=== PATIENT | female | born 1945 | race African-American/Black ===

== ENCOUNTER 2018-10-30 01:19 | Emergency (ER) | payer MEDICARE, OTHER ==
[~2018-10-30] VITALS: Ht 172.7 cm; Wt 90.7 kg
[~2018-10-30 01:19] MED LIST: ALPRAZOLAM0.5 MG PO; AMLODIPINE BESY10 MG ORAL; AZITHROMYCIN250 MG ORAL; HYDRALAZINE HCL50 MG ORAL; HYDROCHLOROTH12.5 M2 ORAL; IRBESARTAN150 MG ORAL; ONDANSETRON ODT4 MG ORAL; OSTERA TABLET1 EACH PO; ROBITUSSIN COU1 EACH PO; [UNRECOGNIZED DRUG - OTHER] PO
[2018-10-30 01:30] VITALS: BP 157/95
--- NOTE | 2018-10-30 01:35 | NUR ---
ED Nurse Note: Pt arrived ambulatory with complaint of feeling her body shake "like an engine". Pt states she feel her gait is unsteady, and is feeling very odd. Pt has a hx of hyperthyroidism.
[2018-10-30 02:23] LABS: BASOPHILS % (AUTO) 1.6 % (0.0-2.0); HEMATOCRIT 39.1 % (37.0-47.0); HEMOGLOBIN 13.1 G/DL (12.0-16.0); LYMPHOCYTES % (AUTO) 44.5 % (20.0-45.0); MEAN CORPUSCULAR VOLUME 89 FL (80-99); MONOCYTES % (AUTO) 6.5 % (1.0-10.0); NEUTROPHILS % (AUTO) 45.4 % (45.0-75.0); PLATELET COUNT 195 K/UL (150-450); WHITE BLOOD COUNT 7.1 K/UL (4.8-10.8)
[2018-10-30 02:23] LABS: APPEARANCE,URINE CLEAR; BILIRUBIN, URINE NEGATIVE (NEGATIVE); COLOR,URINE PALE YELLOW; GLUCOSE, URINE (UA) NEGATIVE (NEGATIVE); KETONES,URINE NEGATIVE (NEGATIVE); LEUKOCYTE ESTERASE ,URINE NEGATIVE (NEGATIVE); NITRITE,URINE NEGATIVE (NEGATIVE); PH,URINE 7 (4.5-8.0); PROTEIN,URINE NEGATIVE (NEGATIVE); UROBILINOGEN,URINE NORMAL MG/DL (0.0-1.0)
[2018-10-30 02:31] LABS: ANION GAP 6 mmol/L (5-15); BLOOD UREA NITROGEN 16 mg/dL (7-18); CALCIUM 8.5 MG/DL (8.5-10.1); CARBON DIOXIDE 27 MMOL/L (21-32); CHLORIDE 106 MMOL/L (98-107); POTASSIUM 3.5 MMOL/L (3.5-5.1); SODIUM 139 MMOL/L (136-145)
[2018-10-30 02:43] LABS: ALANINE AMINOTRANSFERASE 19 U/L (12-78); ALBUMIN 3.8 G/DL (3.4-5.0); ALKALINE PHOSPHATASE 70 U/L (46-116); ASPARTATE AMINO TRANSFERASE 18 U/L (15-37); BILIRUBIN,TOTAL 0.3 MG/DL (0.2-1.0)
[2018-10-30] MEDS ORDERED: Dexamethasone 4mg/ml vial IVP ONE (03:15)
--- NOTE | 2018-10-30 05:42 | Emergency Room Report ---
History of Present Illness General Chief Complaint: General Complaint Source: Patient Present Illness HPI Patient is a 73-year-old female presented after increased generalized back pain. She reports having previously been seen by She states that she been having increased dry mouth as well as generalized body pain. She states this is worse in her back. She reports having some previous history of hypertension. She denies any prior cardiac conditions. She reportedly takes Norvasc for hypertension. She states that she is in the past had some swelling to her leg which has improved. Allergies: Coded Allergies: ANTIHISTAMINES - ALKYLAMINE (Verified Allergy, Severe, Shortness of Breath , 08/16/13) SOB, Rash ANTIHISTAMINES - ETHANOLAMINE (Verified Allergy, Severe, Shortness of Breath, 08/16/13) SOB, Rash ANTIHISTAMINES - ETHYLENEDIAMINE (Verified Allergy, Severe, Shortness of Breath, 08/16/13) SOB, Rash ANTIHISTAMINES - PIPERAZINE (Verified Allergy, Severe, Shortness of Breath , 08/16/13) SOB, Rash ANTIHISTAMINES - PIPERIDINE (Verified Allergy, Severe, Shortness of Breath , 08/16/13) SOB, Rash CODEINE (Verified Allergy, Intermediate, Rash, 08/16/13) Rash, Itching PENICILLINS (Verified Allergy, Intermediate, Rash, 08/16/13) Rash and Itching Patient History Past Medical History: see triage record Last Menstrual Period: n/a Reviewed Nursing Documentation: PMH: Agreed; PSxH: Agreed Nursing Documentation-PMH Past Medical History: No History, Except For Hx Cardiac Problems: Yes - Parathyroidectomy in 2001 Hx Hypertension: Yes Hx Pacemaker: No Hx Asthma: No Hx COPD: No Hx Diabetes: No Hx Cancer: No Hx Gastrointestinal Problems: No - s/p Hysterectomy in 1991 Hx Dialysis: No Hx Neurological Problems: No Hx Cerebrovascular Accident: No Hx Seizures: No Review of Systems All Other Systems: negative except mentioned in HPI Physical Exam Vital Signs Date Time Temp Pulse Resp B/P (MAP) Pulse Ox O2 Delivery O2 Flow Rate FiO2 10/30/18 01:23 98.2 83 18 157/95 96 Room Air Sp02 EP Interpretation: reviewed, normal General Appearance: normal inspection, well appearing, no apparent distress, alert, GCS 15, Chronically Ill Head: atraumatic ENT: normal ENT inspection, hearing grossly normal, normal voice Neck: normal inspection, full range of motion, supple, no bony tend Respiratory: normal inspection, lungs clear, normal breath sounds, no respiratory distress, no retraction, no wheezing Cardiovascular #1: regular rate, rhythm, no edema Gastrointestinal: normal inspection, normal bowel sounds, non tender, soft, no guarding, no hernia Genitourinary: no CVA tenderness Musculoskeletal: normal inspection, back normal, normal range of motion Neurologic: normal inspection, alert, oriented x3, responsive, boiling tub operator III-XII nml as tested, speech normal Psychiatric: normal inspection, judgement/insight normal, mood/affect normal Skin: normal inspection, normal color, no rash Medical Decision Making Diagnostic Impression: Primary Impression: Back pain Additional Impression: Thyroid disease ER Course Patient presented for back pain. Differential diagnosis include was not limited to Hypothyroidism bronchitis pneumonia among others. Because of complexity of patient's case laboratory testing and imaging studies were ordered. Laboratory testing showed no evidence of anemia. Patient's TSH was noted to be normal. Urinalysis showed evidence of fairly dilute urine and patient does not appear to be dehydrated. EKG interpreted by me showed normal sinus rhythm with a rate of [address] or T wave changes. Patient was noted to be in no acute distress. Rhythm strip showed normal sinus rhythm with occasional PVCs. Patient appears to be stable for outpatient evaluation by her primary care physician. Patient was discharged home. She was advised to follow -up with her primary care physician for further workup and evaluation of her back pain. She was given steroids in the emergency department due to discomfort. Patient was advised to return if she began having any increased concerns. Labs Test 10/30/18 01:35 10/30/18 02:00 Urine Color Pale yellow Urine Appearance Clear Urine pH 7 (4.5-8.0) Urine Specific [place] 1.005 (1.005-1.035) Urine Protein Negative (NEGATIVE) Urine Glucose (UA) Negative (NEGATIVE) Urine Ketones Negative (NEGATIVE) Urine Blood Negative (NEGATIVE) Urine Nitrite Negative (NEGATIVE) Urine Bilirubin Negative (NEGATIVE) Urine Urobilinogen Normal MG/DL (0.0-1.0) Urine Leukocyte Esterase Negative (NEGATIVE) Urine RBC 0 /HPF (0 - 2) Urine WBC 0 /HPF (0 - 2) Urine Squamous Epithelial Cells None /LPF (NONE/OCC) Urine Bacteria None /HPF (NONE) White Blood Count 7.1 K/UL (4.8-10.8) Red Blood Count 4.40 M/UL (4.20-5.40) Hemoglobin 13.1 G/DL (12.0-16.0) Hematocrit 39.1 % (37.0-47.0) Mean Corpuscular Volume 89 FL (80-99) Mean Corpuscular Hemoglobin 29.9 PG (27.0-31.0) Mean Corpuscular Hemoglobin Concent 33.6 G/DL (32.0-36.0) Red Cell Distribution Width 12.0 % (11.6-14.8) Platelet Count 195 K/UL (150-450) Mean Platelet Volume 8.7 FL (6.5-10.1) Neutrophils (%) (Auto) 45.4 % (45.0-75.0) Lymphocytes (%) (Auto) 44.5 % (20.0-45.0) Monocytes (%) (Auto) 6.5 % (1.0-10.0) Eosinophils (%) (Auto) 2.0 % (0.0-3.0) Basophils (%) (Auto) 1.6 % (0.0-2.0) Sodium Level 139 MMOL/L (136-145) Potassium Level 3.5 MMOL/L (3.5-5.1) Chloride Level 106 MMOL/L (98-107) Carbon Dioxide Level 27 MMOL/L (21-32) Anion Gap 6 mmol/L (5-15) Blood Urea Nitrogen 16 mg/dL (7-18) Creatinine 1.0 MG/DL (0.55-1.30) Estimat Glomerular Filtration Rate mL/min (>60) Glucose Level 95 MG/DL (74-106) Calcium Level 8.5 MG/DL (8.5-10.1) Total Bilirubin 0.3 MG/DL (0.2-1.0) Aspartate Amino Transf (AST/SGOT) 18 U/L (15-37) Alanine Aminotransferase (ALT/SGPT) 19 U/L (12-78) Alkaline Phosphatase 70 U/L (46-116) Troponin I 0.002 ng/mL (0.000-0.056) C-Reactive Protein, Quantitative 0.5 mg/dL (0.00-0.90) Pro-B-Type Natriuretic Peptide 23 pg/mL (0-125) Total Protein 7.5 G/DL (6.4-8.2) Albumin 3.8 G/DL (3.4-5.0) Globulin 3.7 g/dL Albumin/Globulin Ratio 1.0 (1.0-2.7) Lipase 125 U/L (73-393) Thyroid Stimulating Hormone (TSH) 2.526 uiU/mL (0.358-3.740) EKG Diagnostic Results Rate: normal Rhythm: NSR ST Segments: no acute changes Last Vital Signs Date Time Temp Pulse Resp B/P (MAP) Pulse Ox O2 Delivery O2 Flow Rate FiO2 10/30/18 01:23 98.2 83 18 157/95 96 Room Air Status: improved Disposition: HOME, SELF-CARE Condition: Stable Patient Instructions: Back Pain, Adult Cory Franklin MD Oct 30, 2018 05:42
--- NOTE | 2018-10-30 06:10 | NUR ---
ED Nurse Note: Pt cleared by MD. Discharge paperwork provided. Pt verbalized understanding of all instructions. IV and ID band removed. All belongings taken with patient. Pt has approriate
[2018-10-30 06:18] VITALS: BP 133/67
--- NOTE | 2018-10-30 13:47 | Diagnostic Imaging Report ---
Indication: Shortness of Technique: One view of the chest Comparison: 08/17/2012 Findings: The heart size is normal. The lungs and pleural spaces are clear. The aorta is tortuous. No significant change Impression: No acute process This agrees with the preliminary interpretation provided by the emergency room physician
== END 2018-10-30 06:30 | disposition home or self-care (01) ==
LOC: EMR 01:57
DX: M54.9 Dorsalgia, unspecified (principal); E07.9 Disorder of thyroid, unspecified; I10 Essential (primary) hypertension; Z90.710 Acquired absence of both cervix and uterus
CPT/HCPCS: 36415; 71045; 80053; 81001; 82962; 83690; 83880; 84443; 84484; 85025; 86140; 93005; 96374; 99284; J1100

== ENCOUNTER 2018-11-23 10:07 | Emergency (ER) | payer MEDICARE, OTHER ==
[~2018-11-23] VITALS: Ht 172.7 cm; Wt 99.8 kg
[2018-11-23] MEDS ORDERED: LOSARTAN POTASS50 MG ORAL (10:21)
[2018-11-23 10:34] VITALS: BP 164/89
[2018-11-23 10:58] VITALS: BP 149/85
--- NOTE | 2018-11-24 07:07 | Emergency Room Report ---
History of Present Illness General Chief Complaint: Hypertension Source: Patient, Medical Record Present Illness HPI 73-year-old female presents ED for evaluation. Complaining of high blood pressure. BP in triage 146/85. Denies chest pain or shortness of breath. Denies dizziness or blurry vision. Denies headache. States that she is currently on BP meds and is compliant with them. Was recently taken off atenolol because it had side effects. Patient states her blood pressure was higher this morning. States she takes the medication in the morning. States she was seen at [facility] recently for similar presentation and subsequent only discharged. No other aggravating relieving factors. Denies any other associated symptoms Allergies: Coded Allergies: ANTIHISTAMINES - ALKYLAMINE (Verified Allergy, Severe, Shortness of Breath , 08/16/13) SOB, Rash ANTIHISTAMINES - ETHANOLAMINE (Verified Allergy, Severe, Shortness of Breath, 08/16/13) SOB, Rash ANTIHISTAMINES - ETHYLENEDIAMINE (Verified Allergy, Severe, Shortness of Breath, 08/16/13) SOB, Rash ANTIHISTAMINES - PIPERAZINE (Verified Allergy, Severe, Shortness of Breath , 08/16/13) SOB, Rash ANTIHISTAMINES - PIPERIDINE (Verified Allergy, Severe, Shortness of Breath , 08/16/13) SOB, Rash CODEINE (Verified Allergy, Intermediate, Rash, 08/16/13) Rash, Itching PENICILLINS (Verified Allergy, Intermediate, Rash, 08/16/13) Rash and Itching Patient History Past Medical History: HTN Past Surgical History: none Pertinent Family History: none Social History: Denies: smoking, alcohol use, drug use Now: No Immunizations: UTD Reviewed Nursing Documentation: PMH: Agreed; PSxH: Agreed Nursing Documentation-PMH Past Medical History: No History, Except For Hx Cardiac Problems: Yes - Parathyroidectomy in 2001 Hx Hypertension: Yes Hx Pacemaker: No Hx Asthma: No Hx COPD: No Hx Diabetes: No Hx Cancer: No Hx Gastrointestinal Problems: No - s/p Hysterectomy in 1991 Hx Dialysis: No Hx Neurological Problems: No Hx Cerebrovascular Accident: No Hx Seizures: No Review of Systems All Other Systems: negative except mentioned in HPI Physical Exam Vital Signs Date Time Temp Pulse Resp B/P (MAP) Pulse Ox O2 Delivery O2 Flow Rate FiO2 11/23/18 10:13 98.1 80 18 146/85 95 Room Air Sp02 EP Interpretation: reviewed, normal General Appearance: no apparent distress, alert, GCS 15, non-toxic Head: normocephalic, atraumatic Eyes: bilateral eye normal inspection, bilateral eye PERRL ENT: hearing grossly normal, normal pharynx, no angioedema, normal voice Neck: full range of motion, supple/symm/no masses Respiratory: chest non-tender, lungs clear, normal breath sounds, speaking full sentences Cardiovascular #1: regular rate, rhythm, no edema Cardiovascular #2: 2+ carotid (R), 2+ carotid (L), 2+ radial (R), 2+ radial (L) , 2+ dorsalis pedis (R), 2+ dorsalis pedis (L) Gastrointestinal: normal bowel sounds, non tender, soft, non-distended, no guarding, no rebound Rectal: deferred Genitourinary: normal inspection, no CVA tenderness Musculoskeletal: back normal, gait/station normal, normal range of motion, non- tender Neurologic: alert, oriented x3, responsive, motor strength/tone normal, sensory intact, speech normal Psychiatric: judgement/insight normal, memory normal, mood/affect normal, no suicidal/homicidal ideation Reflexes: 3+ bicep (R), 3+ bicep (L), 3+ tricep (R), 3+ tricep (L), 3+ knee (R) , 3+ knee (L) Skin: normal color, no rash, warm/dry, well hydrated Lymphatic: no adenopathy Medical Decision Making Diagnostic Impression: Primary Impression: Hypertension Qualified Codes: I10 - Essential (primary) hypertension ER Course Hospital Course 73-year-old female presents ED complaining of elevated BP Differential diagnoses include: hypertensive urgency, hypertensive emergency, arrythmia, ID/ACS Clinical course Patient placed on stretcher. After initial history, physical exam reveals a elderly female in no acute distress. Physical exam unremarkable. Cranial nerves II through XII intact. No evidence of end organ damage Subsequent BPs in ED are similar to triage. Patient asymptomatic. Discussed findings with patient. This is asymptomatic hypertension. No emergent indication for treatment. Discussed findings with patient. Patient is requesting a second medication for blood pressure to take with her losartan. I explained that the ER is not an appropriate avenue to discuss such medications. She needs to follow-up with either her PMD or a convex grinder operator in the outpatient setting Patient states she was told the same thing at [facility]. States she will follow-up with her PMD. Safe for discharge close outpatient follow-up I. I feel this is a highly complex case requiring extensive working including EKG/Rhythm strip, Xray/CT/US, Blood/urine lab work, repeat exams while in ED, and administration of strong opiates/narcotics for pain control, admission to hospital or close patient follow up. Diagnosis - hypertension Stable and discharged to home. Instructed to followup with PMD. Return to ED if symptoms recur or worsen Last Vital Signs Date Time Temp Pulse Resp B/P (MAP) Pulse Ox O2 Delivery O2 Flow Rate FiO2 11/23/18 10:58 98.4 86 17 149/85 98 Room Air Status: improved Disposition: HOME, SELF-CARE Condition: Stable Referrals: NON PHYSICIAN (PCP) Patient Instructions: Hypertension, [id number] Stephen Castanon MD Nov 24, 2018 07:07
== END 2018-11-23 11:10 | disposition home or self-care (01) ==
LOC: EMR 10:45
DX: I10 Essential (primary) hypertension (principal); Z79.899 Other long term (current) drug therapy; Z88.6 Allergy status to analgesic agent; Z88.0 Allergy status to penicillin; Z88.8 Allergy status to other drugs, medicaments and biological substances; Z90.710 Acquired absence of both cervix and uterus
CPT/HCPCS: 99282

== ENCOUNTER 2019-06-04 16:22 | Emergency (ER) | payer MEDICARE, OTHER ==
[~2019-06-04] VITALS: Ht 172.7 cm; Wt 88.0 kg
[~2019-06-04 16:22] MED LIST changes: +LOSARTAN POTASS50 MG ORAL
--- NOTE | 2019-06-04 16:30 | NUR ---
ED Nurse Note: PT WALKED IN TO ER TODAY FROM HOME. AOX4. PT C/O DIZZINESS AND PALPITATIONS X 2-3 HOURS AGO. PT DENIES NAUSEA OR VOMITING. PT DENIES ANY PAIN. GAIT STEADY BUT WEAK IN ER. AT BEDSIDE, PT STATES SYMPTOMS ARE STILL ONGOING AT THIS TIME. BP 160/93 - DR TOLLIVER AWARE AND AT BEDSIDE FOR EVALUATION.
[2019-06-04 16:53] VITALS: BP 160/93
[2019-06-04 17:06] LABS: BASOPHILS % (AUTO) 0.9 % (0.0-2.0); HEMATOCRIT 40.4 % (37.0-47.0); HEMOGLOBIN 13.4 G/DL (12.0-16.0); LYMPHOCYTES % (AUTO) 39.9 % (20.0-45.0); MEAN CORPUSCULAR VOLUME 89 FL (80-99); MONOCYTES % (AUTO) 6.3 % (1.0-10.0); NEUTROPHILS % (AUTO) 51.9 % (45.0-75.0); PLATELET COUNT 205 K/UL (150-450); RED BLOOD COUNT 4.52 M/UL (4.20-5.40); RED CELL DISTRIBUTION WIDTH 11.7 % (11.6-14.8); WHITE BLOOD COUNT 7.9 K/UL (4.8-10.8)
[2019-06-04] MEDS: Metoclopramide 10mg/2ml Inj IVP ONE ×2 (17:06→17:17)
[2019-06-04 17:25] LABS: ANION GAP 11 mmol/L (5-15); BLOOD UREA NITROGEN 13 mg/dL (7-18); CALCIUM 9.6 MG/DL (8.5-10.1); CARBON DIOXIDE 24 MMOL/L (21-32); CHLORIDE 105 MMOL/L (98-107); POTASSIUM 3.4 MMOL/L (3.5-5.1); SODIUM 140 MMOL/L (136-145)
[2019-06-04 17:26] LABS: APPEARANCE,URINE CLEAR; BILIRUBIN, URINE NEGATIVE (NEGATIVE); COLOR,URINE PALE YELLOW; GLUCOSE, URINE (UA) NEGATIVE (NEGATIVE); KETONES,URINE NEGATIVE (NEGATIVE); LEUKOCYTE ESTERASE ,URINE 2+ (NEGATIVE); NITRITE,URINE NEGATIVE (NEGATIVE); PH,URINE 7 (4.5-8.0); PROTEIN,URINE NEGATIVE (NEGATIVE); UROBILINOGEN,URINE NORMAL MG/DL (0.0-1.0)
[2019-06-04 17:32] LABS: ALANINE AMINOTRANSFERASE 21 U/L (12-78); ALBUMIN 3.9 G/DL (3.4-5.0); ALKALINE PHOSPHATASE 50 U/L (46-116); ASPARTATE AMINO TRANSFERASE 19 U/L (15-37); BILIRUBIN,TOTAL 0.7 MG/DL (0.2-1.0)
[2019-06-04 18:48] VITALS: BP 121/88
--- NOTE | 2019-06-04 18:50 | NUR ---
ED Nurse Note: PT LAYING PEACEFULLY IN BED IN NAD. AOX4. DISCHARGE PAPERWORK EXPLAINED TO PT. PT VERBALIZES UNDERSTANDING AND ALL QUESTIONS ANSWERED. DISCHARGE PAPERWORK GIVEN TO PT, IV AND ID WRISTBAND REMOVED. PT WALKED OUT OF ER WITH STEADY GAIT AND ALL BELONGINGS. VSS.
--- NOTE | 2019-06-04 18:53 | Diagnostic Imaging Report ---
EXAM: XR Chest, 1 View CLINICAL HISTORY: DIZZY TECHNIQUE: Frontal view of the chest. COMPARISON: Chest radiograph on 10 30 2018 FINDINGS: Hardware: None. Lungs pleura: Bibasilar opacities may represent atelectasis. No pleural effusion or pneumothorax. Heart mediastinum: Stable mild enlargement of the cardiac silhouette. Soft tissues: Unremarkable. Bones: No acute fracture. Degenerative changes of the acromioclavicular joints. Upper abdomen: Normal. IMPRESSION: Bibasilar opacities may represent atelectasis. Pneumonia is not excluded in the appropriate clinical setting.
--- NOTE | 2019-06-04 19:15 | Emergency Room Report ---
History of Present Illness General Chief Complaint: Dizziness Source: Patient, Medical Record Present Illness HPI c/73-year-old female presents ED for evaluation. c/o dizziness. states that she was visiting her mother at the retirement today when she started to feel dizzy and states that her blood pressure was high. She got upset and she came to the ED. Denies any headache. Denies any blurry vision. Denies chest pain or shortness of breath. Denies neck stiffness. States that she took her BP med at the facility and states that it started to improve. No other aggravating relieving factors. Denies any other associated symptoms Allergies: Coded Allergies: ANTIHISTAMINES - ALKYLAMINE (Verified Allergy, Severe, Shortness of Breath , 08/16/13) SOB, Rash ANTIHISTAMINES - ETHANOLAMINE (Verified Allergy, Severe, Shortness of Breath, 08/16/13) SOB, Rash ANTIHISTAMINES - ETHYLENEDIAMINE (Verified Allergy, Severe, Shortness of Breath, 08/16/13) SOB, Rash ANTIHISTAMINES - PIPERAZINE (Verified Allergy, Severe, Shortness of Breath , 08/16/13) SOB, Rash ANTIHISTAMINES - PIPERIDINE (Verified Allergy, Severe, Shortness of Breath , 08/16/13) SOB, Rash CODEINE (Verified Allergy, Intermediate, Rash, 08/16/13) Rash, Itching PENICILLINS (Verified Allergy, Intermediate, Rash, 08/16/13) Rash and Itching Patient History Past Medical History: HTN Past Surgical History: none Pertinent Family History: none Social History: Denies: smoking, alcohol use, drug use Now: No Immunizations: UTD Reviewed Nursing Documentation: PMH: Agreed; PSxH: Agreed Nursing Documentation-PMH Past Medical History: No History, Except For Hx Cardiac Problems: Yes - Parathyroidectomy in 2001 Hx Hypertension: Yes Hx Pacemaker: No Hx Asthma: No Hx COPD: No Hx Diabetes: No Hx Cancer: No Hx Gastrointestinal Problems: No - s/p Hysterectomy in 1991 Hx Dialysis: No Hx Neurological Problems: No Hx Cerebrovascular Accident: No Hx Seizures: No Review of Systems All Other Systems: negative except mentioned in HPI Physical Exam Vital Signs Date Time Temp Pulse Resp B/P (MAP) Pulse Ox O2 Delivery O2 Flow Rate FiO2 06/04/19 16:26 97.5 69 18 173/82 (112) 95 Room Air Sp02 EP Interpretation: reviewed, normal General Appearance: no apparent distress, alert, GCS 15, non-toxic Head: normocephalic, atraumatic Eyes: bilateral eye normal inspection, bilateral eye PERRL ENT: hearing grossly normal, normal pharynx, no angioedema, normal voice Neck: full range of motion, supple/symm/no masses Respiratory: chest non-tender, lungs clear, normal breath sounds, speaking full sentences Cardiovascular #1: regular rate, rhythm, no edema Cardiovascular #2: 2+ carotid (R), 2+ carotid (L), 2+ radial (R), 2+ radial (L) , 2+ dorsalis pedis (R), 2+ dorsalis pedis (L) Gastrointestinal: normal bowel sounds, non tender, soft, non-distended, no guarding, no rebound Rectal: deferred Genitourinary: normal inspection, no CVA tenderness Musculoskeletal: back normal, gait/station normal, normal range of motion, non- tender Neurologic: alert, oriented x3, responsive, motor strength/tone normal, sensory intact, speech normal Psychiatric: judgement/insight normal, memory normal, mood/affect normal, no suicidal/homicidal ideation Reflexes: 3+ bicep (R), 3+ bicep (L), 3+ tricep (R), 3+ tricep (L), 3+ knee (R) , 3+ knee (L) Lymphatic: no adenopathy Medical Decision Making Diagnostic Impression: Primary Impression: Dizziness Additional Impression: HTN (hypertension) Qualified Codes: I10 - Essential (primary) hypertension ER Course Hospital Course 73year-old female presents ED complaining of elevated BP, c/o dizziness Differential diagnoses include: hypertensive urgency, hypertensive emergency, arrythmia, RI/ACS Clinical course Patient placed on stretcher. After initial history and physical I ordered labs , EKG, chest x-ray, IVFs labs reviewed- all electrolytes normal, troponins negative, no leukocytosis, hemoglobin/hematocrit stable EKG - NSR Chest x-ray-no cardiomegaly, no rib fracture, no pneumothorax, no acute process On reassessment patient states she feels better after IV hydration. BP initially elevated and improved after clonidine. discussed findings with patient. Will discharge to home. States she has a PMD. States she has her BP meds at home I. I feel this is a highly complex case requiring extensive working including EKG/Rhythm strip, Xray/CT/US, Blood/urine lab work, repeat exams while in ED, and administration of strong opiates/narcotics for pain control, admission to hospital or close patient follow up. Diagnosis - dizziness, hypertension Stable and discharged to home. Instructed to followup with PMD. Return to ED if symptoms recur or worsen Labs Test 06/04/19 16:48 06/04/19 16:53 White Blood Count 7.9 K/UL (4.8-10.8) Red Blood Count 4.52 M/UL (4.20-5.40) Hemoglobin 13.4 G/DL (12.0-16.0) Hematocrit 40.4 % (37.0-47.0) Mean Corpuscular Volume 89 FL (80-99) Mean Corpuscular Hemoglobin 29.7 PG (27.0-31.0) Mean Corpuscular Hemoglobin Concent 33.2 G/DL (32.0-36.0) Red Cell Distribution Width 11.7 % (11.6-14.8) Platelet Count 205 K/UL (150-450) Mean Platelet Volume 7.5 FL (6.5-10.1) Neutrophils (%) (Auto) 51.9 % (45.0-75.0) Lymphocytes (%) (Auto) 39.9 % (20.0-45.0) Monocytes (%) (Auto) 6.3 % (1.0-10.0) Eosinophils (%) (Auto) 1.0 % (0.0-3.0) Basophils (%) (Auto) 0.9 % (0.0-2.0) Sodium Level 140 MMOL/L (136-145) Potassium Level 3.4 MMOL/L (3.5-5.1) Chloride Level 105 MMOL/L (98-107) Carbon Dioxide Level 24 MMOL/L (21-32) Anion Gap 11 mmol/L (5-15) Blood Urea Nitrogen 13 mg/dL (7-18) Creatinine 1.0 MG/DL (0.55-1.30) Estimat Glomerular Filtration Rate mL/min (>60) Glucose Level 94 MG/DL (74-106) Calcium Level 9.6 MG/DL (8.5-10.1) Total Bilirubin 0.7 MG/DL (0.2-1.0) Aspartate Amino Transf (AST/SGOT) 19 U/L (15-37) Alanine Aminotransferase (ALT/SGPT) 21 U/L (12-78) Alkaline Phosphatase 50 U/L (46-116) Troponin I 0.000 ng/mL (0.000-0.056) Total Protein 7.7 G/DL (6.4-8.2) Albumin 3.9 G/DL (3.4-5.0) Globulin 3.8 g/dL Albumin/Globulin Ratio 1.0 (1.0-2.7) Urine Color Pale yellow Urine Appearance Clear Urine pH 7 (4.5-8.0) Urine Specific [place] 1.005 (1.005-1.035) Urine Protein Negative (NEGATIVE) Urine Glucose (UA) Negative (NEGATIVE) Urine Ketones Negative (NEGATIVE) Urine Blood Negative (NEGATIVE) Urine Nitrite Negative (NEGATIVE) Urine Bilirubin Negative (NEGATIVE) Urine Urobilinogen Normal MG/DL (0.0-1.0) Urine Leukocyte Esterase 2+ (NEGATIVE) Urine RBC 0-2 /HPF (0 - 2) Urine WBC 0-2 /HPF (0 - 2) Urine Squamous Epithelial Cells Occasional /LPF Urine Bacteria None /HPF (NONE) EKG Diagnostic Results Rate: normal Rhythm: NSR ST Segments: no acute changes ASA given to the pt in ED: No Rhythm Strip Diag. Results EP Interpretation: yes Rhythm: NSR, no PVC's, no ectopy Chest X-Ray Diagnostic Results Chest X-Ray Diagnostic Results : Chest X-Ray Ordered: Yes # of Views/Limited/Complete: 1 View Indication: Other - dizzines EP Interpretation: Yes Interpretation: no consolidation, no effusion, no pneumothorax, no acute cardiopulmonary disease Impression: No acute disease Electronically Signed by: Electronically signed by Stephen Castanon MD Last Vital Signs Date Time Temp Pulse Resp B/P (MAP) Pulse Ox O2 Delivery O2 Flow Rate FiO2 06/04/19 18:48 98.0 74 16 121/88 100 Room Air Status: improved Disposition: HOME, SELF-CARE Condition: Stable Referrals: Aline Reyes MD (PCP) Patient Instructions: Stephen Hanna MD Jun 04, 2019 19:15
--- NOTE | 2019-06-07 14:05 | Cardiology Report ---
APPROVED REPORT EKG Measurement Heart [id number] Normal sinus rhythm Normal ECG
== END 2019-06-04 18:47 | disposition home or self-care (01) ==
LOC: EMR 17:00
DX: R42 Dizziness and giddiness (principal); I10 Essential (primary) hypertension; Z90.710 Acquired absence of both cervix and uterus; Z88.8 Allergy status to other drugs, medicaments and biological substances; Z88.6 Allergy status to analgesic agent; Z88.0 Allergy status to penicillin
CPT/HCPCS: 36415; 71045; 80053; 81003; 84484; 85025; 93005; 96360; 99284; J2765